=== PATIENT | male | born 1990 | race Caucasian/White ===

== ENCOUNTER 2016-12-10 03:56 | Emergency (ER) | payer SELFPAY ==
[2016-12-10 04:08] VITALS: BP 138/88
--- NOTE | 2016-12-10 04:12 | EDM.PDOC ---
ED HPI GENERAL MEDICAL PROBLEM - General Chief Complaint: Laceration Stated Complaint: CUT THROUGH CHIN AND MOUTH Time Seen by Provider: 12/10/16 04:09 Source of Information: Reports: Patient History Limitations: Reports: No Limitations - History of Present Illness INITIAL COMMENTS - FREE TEXT/NARRATIVE: This is a 26-year-old male. He was at work this evening and he went into a pump house and apparently slipped and fell causing a laceration underneath his chin and also on his lower lip. The lower lip laceration is a through and through laceration. There was no loss of consciousness. He did chip his teeth the top to teeth. He denies any other acute symptoms. He is up-to- date with his tetanus. Face Pain Score (Numeric/FACES): 5 - Related Data Allergies Allergy/AdvReac Type Severity Reaction Status Date / Time No Known Allergies Allergy Verified 12/10/16 04:09 ED ROS GENERAL - Review of Systems Review Of Systems: See Below Constitutional: Reports: No Symptoms HEENT: Reports: Other (As per history of present illness) Respiratory: Reports: No Symptoms Cardiovascular: Reports: No Symptoms Endocrine: Reports: No Symptoms GI/Abdominal: Reports: No Symptoms : Reports: No Symptoms Musculoskeletal: Reports: No Symptoms Skin: Reports: No Symptoms Neurological: Reports: No Symptoms Psychiatric: Reports: No Symptoms ED EXAM, SKIN/RASH Exam: See Below Exam Limited By: No Limitations General Appearance: Alert, WD/WN, No Apparent Distress Eye Exam: Bilateral Eye: Normal Inspection Ears: Normal External Exam Nose: Normal Inspection Throat/Mouth: Other (Lower lip shows a 1.2 cm laceration on the outside and about a 1 cm laceration on the inside of the mid lip, it should be noted that his 2 front teeth are chipped but the other teeth appear to be intact, there is also about a 1.2 cm laceration underneath his chin as well) Head: Normocephalic Neck: Supple Respiratory/Chest: No Respiratory Distress Back Exam: Full Range of Motion Extremities: Normal Inspection, Normal Range of Motion Neurological: Alert, Oriented Psychiatric: Normal Affect, Normal Mood Skin: Warm, Dry ED SKIN PROCEDURES - Laceration/Wound Repair Jaw Lac/wound length in cm: 2 (HEENT the chin) Appearance: Subcutaneous Distal NVT: Neuro & Vascular Intact Anesthetic Type: Local Local Anesthesia - Lidocaine (Xylocaine): 1% Plain Local Anesthetic Volume: 5cc Skin Prep: Providone-Iodine (Betadine) Exploration/Debridement/Repair: Wound Explored, Explored to Base, Foreign Material Removed Closed with: Sutures Suture Size: other (5-oh) # of Sutures: 5 Suture Type: Nylon Drain Placement: No Sterile Dressing Applied: Nurse Tetanus Status Addressed: Yes Complications: No Progress/Comments: Patient tolerated the procedure well Face Lac/wound length in cm: 3 (This was a lower lip laceration 1.5 cm on the outside 1.5 cm on the inside it was a through and through laceration) Appearance: Subcutaneous, Muscle Distal NVT: Neuro & Vascular Intact Anesthetic Type: Local Local Anesthesia - Lidocaine (Xylocaine): 1% Plain Local Anesthetic Volume: 4cc Skin Prep: Providone-Iodine (Betadine) Exploration/Debridement/Repair: Wound Explored, Explored to Base, Foreign Material Removed Closed with: Sutures Suture Size: other (5-0) # of Sutures: 3 Suture Type: Nylon Suture Size: 4-0 # of Sutures: 3 Repaired with: Vicryl Drain Placement: No Sterile Dressing Applied: Nurse Tetanus Status Addressed: Yes Complications: No Progress/Comments: Patient tolerated the procedure well Course - Vital Signs Last Recorded V/S: Last Vital Signs Temp 98.2 F 12/10/16 04:02 Pulse 74 12/10/16 04:02 Resp 18 12/10/16 04:02 BP 138/88 12/10/16 04:02 Pulse Ox 100 12/10/16 04:02 - Re-Assessments/Exams Free Text/Narrative Re-Assessment/Exam: 12/10/16 05:01 I spoke to the patient about getting the stitches out within 5-7 days but that the internal stitching on his inner lip will come out on their own. Departure - Departure Time of Disposition: 05:01 Disposition: Home, Self-Care 01 Condition: good Clinical Impression: Laceration of lower lip Qualifiers: Encounter type: initial encounter Qualified Code(s): S01.511A - Laceration without foreign body of lip, initial encounter Laceration of chin Qualifiers: Encounter type: initial encounter Qualified Code(s): S01.81XA - Laceration without foreign body of other part of head, initial encounter Tooth fractures Qualifiers: Encounter type: initial encounter Fracture type: closed Qualified Code(s): S02.5XXA - Fracture of tooth (traumatic), initial encounter for closed fracture - Discharge Information Forms: ED Department Discharge Additional Instructions: Followup in 5-7 days for suture removal from the chin in the outside lip, remember the sutures on the inside dissolved on their own, take Tylenol Aleve or ibuprofen as needed for the soreness, use ice to the chin and lip over the next 24 hours on an off to help with the soreness, you need to followup with a dentist for evaluation of your teeth and capping of the front teeth, followup with your companies and designated medical provider as suggested
== END 2016-12-10 05:13 | disposition home or self-care (01) ==
LOC: JD.ED 03:56
DX: S02.5XXA Fracture of tooth (traumatic), initial encounter for closed fracture (principal); S01.511A Laceration without foreign body of lip, initial encounter; S01.81XA Laceration without foreign body of other part of head, initial encounter; W01.0XXA Fall on same level from slipping, tripping and stumbling without subsequent striking against object, initial encounter
CPT/HCPCS: 12011; 12051; 99282-25; 99283-25